=== PATIENT | male | born 1985 | race Caucasian/White ===

== ENCOUNTER 2023-02-12 15:40 | Emergency (ER) | payer BC ==
[~2023-02-12] VITALS: Ht 182.9 cm; Wt 95.3 kg
[2023-02-12] MEDS ORDERED: FLONASE ALLERG9.9 ML NS (15:52)
[2023-02-12] MEDS ORDERED: XYZAL5 MG PO (15:52)
== END 2023-02-12 17:25 | disposition home or self-care (01) ==
LOC: ER 15:40
DX: R50.9 Fever, unspecified (principal); E86.0 Dehydration; Z20.822 Contact with and (suspected) exposure to COVID-19

== ENCOUNTER 2023-02-13 09:58 | Inpatient (IN) | payer BC ==
[~2023-02-13] VITALS: Ht 175.3 cm; Wt 81.6 kg
[~2023-02-13 09:58] MED LIST: FLONASE ALLERG9.9 ML NS; XYZAL5 MG PO
== END 2023-02-19 12:40 | disposition home or self-care (01) | DRG 179 ==
LOC: ER 09:58 → MEDI 20:15 → MEDJ 20:15 → MEDI 21:13
PROVIDERS: ADMIT Internal Medicine; ATTEND Internal Medicine
PROC: 3E0F7GC Introduction of Other Therapeutic Substance into Respiratory Tract, Via Natural or Artificial Opening (ICD-10-PCS; principal; 2023-02-13)
PROC: 3E0F7SF Introduction of Other Gas into Respiratory Tract, Via Natural or Artificial Opening (ICD-10-PCS; 2023-02-13)
PROC: 8E0ZXY6 Isolation (ICD-10-PCS; 2023-02-16)
DX: J15.212 Pneumonia due to Methicillin resistant Staphylococcus aureus (principal); D72.829 Elevated white blood cell count, unspecified; R09.02 Hypoxemia; Z20.822 Contact with and (suspected) exposure to COVID-19